=== PATIENT | female | born 1980 | race Caucasian/White ===

== ENCOUNTER 2017-10-23 09:07 | Day surgery (SDC) | payer OTHER ==
[~2017-10-23] VITALS: Ht 154.9 cm; Wt 53.9 kg
[2017-10-23] MEDS ORDERED: GRAN1PAT PO (09:48)
[2017-10-23] MEDS ORDERED: ONDA4TAB7 PO (09:48)
[2017-10-23] MEDS ORDERED: [UNRECOGNIZED DRUG - OTHER] PO (09:48)
[2017-10-23] MEDS ORDERED: PROC5TAB PO (09:48)
[2017-10-23] MEDS ORDERED: LACTATED RINGERS 1,000 ML IV SCH (09:48)
[2017-10-23] MEDS ORDERED: OMEP-110 PO (09:48)
[2017-10-23] MEDS ORDERED: LORA1TAB PO (09:48)
[2017-10-23 09:55] VITALS: BP 97/64
[2017-10-23 09:59] LABS: HCG UR SG 1.023 (1.003-1.030)
[2017-10-23] MEDS ORDERED: PROPOFOL 50 ML ONE (11:24)
[2017-10-23] MEDS ORDERED: MIDAZOLAM 1 MG/ML, 2ML ONE (11:24)
[2017-10-23] MEDS ORDERED: ONDANSETRON 2MG/ML, 2ML ONE (12:35)
[2017-10-23] MEDS ORDERED: OXYcodone 5 MG/5 ML ORAL.SOL UDC PO PRN (13:00)
[2017-10-23] MEDS ORDERED: PROMETHAZINE 25 MG/ML, 1ML IV PRN (13:00)
[2017-10-23] MEDS ORDERED: FENTANYL PF 100 MCG/2ML IV PRN (13:00)
[2017-10-23] MEDS ORDERED: morphine SULFATE 10 MG/ML, 1ML IV PRN (13:00)
[2017-10-23] MEDS ORDERED: HYDROcodone/APAP 7.5-325MG/15ML UDC PO PRN (13:00)
[2017-10-23] MEDS ORDERED: MEPERIDINE/PF 25MG/0.5ML IVPush PRN (13:00)
[2017-10-23] MEDS ORDERED: EPHEDRINE 50 MG/ML, 1ML IVPush PRN (13:00)
[2017-10-23] MEDS ORDERED: PROMETHAZINE 12.5 MG SUPP PR PRN (13:00)
[2017-10-23] MEDS ORDERED: ONDANSETRON 2MG/ML, 2ML IVPush PRN (13:00)
[2017-10-23] MEDS ORDERED: ALBUTEROL SULFATE 2.5 MG/3 ML NPPB PRN (13:00)
[2017-10-23] MEDS ORDERED: ONDANSETRON ODT 8 MG PO PRN (13:00)
[2017-10-23] MEDS ORDERED: MIDAZOLAM 1 MG/ML, 2ML IV PRN (13:00)
[2017-10-23] MEDS ORDERED: DIAZEPAM 5 MG/ML, 2ML IVPush PRN (13:00)
[2017-10-23] MEDS ORDERED: ACETAMINOPHEN 325 MG TABLET PO PRN (13:00)
[2017-10-23] MEDS ORDERED: HEPARIN 5,000 UNITS/ML, 1ML ONE (15:22)
== END 2017-10-23 15:48 | disposition home or self-care (01) ==
LOC: OUT 09:07
PROVIDERS: ATTEND Internal Medicine Geriatric Medicine
DX: C16.9 Malignant neoplasm of stomach, unspecified (principal); Z98.890 Other specified postprocedural states
CPT/HCPCS: 43239; 43259; 81025; 88305; J1642; J2250; J2405; J2704; J7120